=== PATIENT | female | born 1960 | race Two or more races ===

== ENCOUNTER 2017-11-04 14:58 | Emergency (ER) | payer OTHER ==
[~2017-11-04] VITALS: Ht 170.2 cm; Wt 61.1 kg
[2017-11-04 15:41] LABS: HEMATOCRIT 41.9 % (34.6-47.8); HEMOGLOBIN 14.3 g/dL (11.7-16.4); WHITE BLOOD COUNT 6.2 x10^3/uL (3.4-10)
[2017-11-04 15:53] LABS: ASPARTATE AMINO TRANSFERASE 13 U/L (15-37); BLOOD UREA NITROGEN 9 mg/dL (7-18)
[2017-11-04 16:00] LABS: IS PT STATUS REG ER OR PRE ER? YES
[2017-11-04] MEDS ORDERED: MECLIZINE CHEWABLE 25 MG TAB ONE (17:24)
[2017-11-04 17:26] VITALS: BP 91/62
[2017-11-04] MEDS ORDERED: MECLIZINE CHEWABLE 25 MG TAB PO ONE (17:30)
== END 2017-11-04 18:20 | disposition home or self-care (01) ==
LOC: ED 15:56
DX: H81.10 Benign paroxysmal vertigo, unspecified ear (principal); E03.9 Hypothyroidism, unspecified
CPT/HCPCS: 36415; 70450; 71020; 80053; 84484; 85025; 93005; 99285